=== PATIENT | male | born 1960 | race Caucasian/White ===

== ENCOUNTER 2016-12-24 23:30 | Emergency (ER) | payer SELFPAY ==
[2016-12-25] MEDS ORDERED: HYDROCODONE/ACETAMINOPHEN 5/325MG TABLET ONE (01:11)
[2016-12-25] MEDS ORDERED: DIPHENHYDRAMINE HCL 25 MG CAPSULE ONE (01:11)
== END 2016-12-25 01:31 | disposition home or self-care (01) ==
LOC: ED 23:30
DX: R59.1 Generalized enlarged lymph nodes (principal); F17.210 Nicotine dependence, cigarettes, uncomplicated
CPT/HCPCS: 99283 ×2; A9270 ×2